=== PATIENT | female | born 1940 | race Caucasian/White ===

== ENCOUNTER 2016-12-17 11:03 | Observation (INO) | payer MEDICARE ==
[~2016-12-17] VITALS: Ht 154.9 cm; Wt 46.3 kg
== END 2016-12-18 10:15 | disposition home or self-care (01) ==
LOC: SDC 11:03 → MED 16:27
PROVIDERS: ADMIT Surgery
DX: K43.2 Incisional hernia without obstruction or gangrene (principal); I10 Essential (primary) hypertension; J44.9 Chronic obstructive pulmonary disease, unspecified; F17.200 Nicotine dependence, unspecified, uncomplicated; Z85.828 Personal history of other malignant neoplasm of skin; Z87.440 Personal history of urinary (tract) infections; Z79.899 Other long term (current) drug therapy; Z90.49 Acquired absence of other specified parts of digestive tract
CPT/HCPCS: 96374; 96375; 96376; C1781; G0378; J2704